=== PATIENT | male | born 1980 | race Caucasian/White ===

== ENCOUNTER 2018-01-27 23:31 | Emergency (ER) | payer SELFPAY ==
--- NOTE | 2018-01-27 23:50 | NUR ---
Patient left facility prior to triage
--- NOTE | 2018-01-27 23:55 | NUR ---
UNABLE TO DEPART PATIENT IN [facility], STATUS CHANGED TO DISCHARGE
== END 2018-01-27 23:57 | disposition left against medical advice (07) ==
LOC: ER 23:55
DX: Z53.21 Procedure and treatment not carried out due to patient leaving prior to being seen by health care provider (principal)

== ENCOUNTER 2018-01-28 01:01 | Emergency (ER) | payer SELFPAY ==
[~2018-01-28] VITALS: Ht 175.3 cm; Wt 74.8 kg
--- NOTE | 2018-01-28 01:08 | NUR ---
Call to patient for Triage, no response.
--- NOTE | 2018-01-28 01:30 | NUR ---
Patient discharged to home in stable conditon. Written and verbal after care instructions given. Patient verbalizes understanding of instructions.
== END 2018-01-28 01:34 | disposition home or self-care (01) ==
LOC: ER 01:09
DX: M79.5 Residual foreign body in soft tissue (principal); F17.210 Nicotine dependence, cigarettes, uncomplicated; F12.10 Cannabis abuse, uncomplicated; F11.10 Opioid abuse, uncomplicated
CPT/HCPCS: A4663

== ENCOUNTER 2018-03-28 19:52 | Emergency (ER) | payer SELFPAY ==
[~2018-03-28] VITALS: Ht 175.3 cm; Wt 74.8 kg
--- NOTE | 2018-03-28 20:20 | NUR ---
DR ANIL PACE MD AT BEDSIDE FOR MSE. PER PT, HE HAS "TRANSMITTERS" STUCK IN BOTH EARS X1 YEAR.
--- NOTE | 2018-03-28 20:25 | NUR ---
Patient discharged to home in stable conditon. Written and verbal after care instructions given. Patient verbalizes understanding of instructions. Pt ambulated from ER w/ stedy gait. No distress noted. Pt took all personal belongings.
[2018-03-28 20:31] VITALS: BP 136/92
== END 2018-03-28 20:34 | disposition home or self-care (01) ==
LOC: ER 19:56
DX: Z00.00 Encounter for general adult medical examination without abnormal findings (principal); F12.10 Cannabis abuse, uncomplicated; F17.200 Nicotine dependence, unspecified, uncomplicated
CPT/HCPCS: A4663

== ENCOUNTER 2018-08-10 03:54 | Emergency (ER) | payer MEDICAID ==
[~2018-08-10] VITALS: Ht 167.6 cm; Wt 72.6 kg
--- NOTE | 2018-08-10 03:58 | NUR ---
Pt. ambulated into ED w/ gf, c/o anxiety, reports using "heroin and speed earlier in the day" and taking two erectile dysfunction drugs approximately one hour ago, denies SOB/CP/GRAHAM/F/C/N/V,
[2018-08-10] MEDS ORDERED: LORAZEPAM 1 MG TABLET ONE (04:00)
--- NOTE | 2018-08-10 04:01 | NUR ---
ED MD at bedside for MSE
[2018-08-10] MEDS ORDERED: LORAZEPAM 0.5 MG TABLET PO ONE (04:15)
[2018-08-10 04:25] LABS: BASOPHILS % (AUTO) 0.6 % (0.0-2.0); EOSINOPHILS # (AUTO) 0.1 K/uL (0.0-0.7); EOSINOPHILS % (AUTO) 1.8 % (0.0-7.0); HEMATOCRIT 43.3 % (36.7-47.1); HEMOGLOBIN 14.7 g/dL (12.5-16.3); LYMPHOCYTES # (AUTO) 2.6 K/uL (20.0-40.0); LYMPHOCYTES % (AUTO) 35.6 % (20.5-51.5); MEAN CORPUSCULAR HEMOGLOBIN 30.1 uug (23.8-33.4); MEAN CORPUSCULAR HGB CONC 34 g/dL (32.5-36.3); MEAN CORPUSCULAR VOLUME 88.9 fL (73.0-96.2); MONOCYTES # (AUTO) 0.6 K/uL (2.0-10.0); MONOCYTES % (AUTO) 7.7 % (0.0-11.0); NEUTROPHILS % (AUTO) 54.3 % (38.5-71.5); PLATELET COUNT (AUTO) 310 K/uL (152-348); RED BLOOD CELL COUNT(AUTO) 4.87 MIL/uL (4.06-5.63); WHITE BLOOD COUNT (AUTO) 7.4 K/uL (3.6-10.2)
[2018-08-10 04:30] LABS: POTASSIUM 3.8 mmol/L (3.5-5.1)
[2018-08-10 04:40] LABS: ETHANOL < 3 MG/DL (0-0)
[2018-08-10 04:41] LABS: *AMPHETAMINE, URINE POSITIVE (NEGATIVE); *BARBITURATE, URINE NEGATIVE (NEGATIVE); *CANNABINOID, URINE POSITIVE (NEGATIVE); *COCCAINE, URINE NEGATIVE (NEGATIVE); *OPIATE, URINE POSITIVE (NEGATIVE); *PHENCYCLIDINE SCREEN,URINE NEGATIVE (NEGATIVE)
--- NOTE | 2018-08-10 05:08 | NUR ---
Patient discharged to home in stable conditon. Written and verbal after care instructions given. Patient verbalizes understanding of instructions. Pt. d/c per MD order, VSS, no acute distress, ambulated out of ED w/ gf,
[2018-08-10 05:09] VITALS: BP 148/58
== END 2018-08-10 05:09 | disposition home or self-care (01) ==
LOC: ER 03:57
DX: F15.10 Other stimulant abuse, uncomplicated (principal); F11.10 Opioid abuse, uncomplicated; F41.9 Anxiety disorder, unspecified; F17.200 Nicotine dependence, unspecified, uncomplicated
CPT/HCPCS: 36415; 71045; 80048; 80307; 84484; 85025; 85730; 93005; 99285; G0480; 70030-TC; A4663

== ENCOUNTER 2018-12-23 13:50 | Emergency (ER) | payer SELFPAY ==
--- NOTE | 2018-12-23 13:55 | NUR ---
Pt was not found in the ER waiting room.
== END 2018-12-23 14:11 | disposition left against medical advice (07) ==
LOC: ER 13:52
DX: Z53.21 Procedure and treatment not carried out due to patient leaving prior to being seen by health care provider (principal)